=== PATIENT | male | born 1985 | race Caucasian/White ===

== ENCOUNTER → 2017-10-09 | Outpatient (CLI) | payer OTHER ==
--- NOTE | 2017-10-10 13:21 | RADIOLOGY REPORT (SQ) ---
EXAM DESCRIPTION: MRI PELVIS WITHOUT COMPLETED DATE/TIME: 10/09/2017 4:20 pm REASON FOR STUDY: INGUINAL PAIN COMPARISON: None. TECHNIQUE: Multiplanar imaging to include fat sensitive and fluid sensitive sequences of the pelvis an particularly of the pubic symphysis. LIMITATIONS: None. FINDINGS: Bones: There is no occult fracture. Contour of the femoral head neck appears normal. No significant bony lesions identified. Rectus abdominis adductor longus aponeurosis: Normal signal. No evidence for tear. No marrow edema of the pubic symphysis. No double cleft sign. Adjacent soft tissues: Inguinal ligaments are intact. No hernia is within the inguinal canal. No p elvic soft tissue masses. No signal alteration along the adductor muscle. IMPRESSION: No evidence for sports hernia. No etiology identified for left inguinal pain. TECHNICAL DOCUMENTATION: JOB ID: [id number] [employer]- All Rights Reserved Reading location - IP/workstation name: [email or web address]
== END ==
LOC: RAD 15:25
PROVIDERS: ATTEND Physician Assistant
DX: K40.90 Unilateral inguinal hernia, without obstruction or gangrene, not specified as recurrent (principal)
CPT/HCPCS: 72195